=== PATIENT | female | born 1985 | race Caucasian/White ===

== ENCOUNTER → 2017-09-09 | Outpatient (CLI) | payer BC | LOC: FIMAGING 13:47 | PROVIDERS: ATTEND Obstetrics & Gynecology | DX: O09.811 Supervision of pregnancy resulting from assisted reproductive technology, first trimester (principal); O99.281 Endocrine, nutritional and metabolic diseases complicating pregnancy, first trimester; O34.01 Maternal care for unspecified congenital malformation of uterus, first trimester; Z20.828 Contact with and (suspected) exposure to other viral communicable diseases; E03.9 Hypothyroidism, unspecified; Z3A.12 12 weeks gestation of pregnancy ==

== ENCOUNTER → 2017-11-04 | Outpatient (CLI) | payer BC | LOC: FIMAGING 07:28 | PROVIDERS: ATTEND Obstetrics & Gynecology | DX: O09.812 Supervision of pregnancy resulting from assisted reproductive technology, second trimester (principal); Z3A.20 20 weeks gestation of pregnancy ==

== ENCOUNTER → 2017-11-26 | Outpatient (CLI) | payer BC | LOC: FIMAGING 08:24 | PROVIDERS: ATTEND Obstetrics & Gynecology | DX: O09.812 Supervision of pregnancy resulting from assisted reproductive technology, second trimester (principal); E03.9 Hypothyroidism, unspecified; Z3A.23 23 weeks gestation of pregnancy ==

== ENCOUNTER → 2018-01-09 | Outpatient (CLI) | payer BC | LOC: FIMAGING 13:00 | PROVIDERS: ATTEND Obstetrics & Gynecology | DX: O09.813 Supervision of pregnancy resulting from assisted reproductive technology, third trimester (principal); Z20.828 Contact with and (suspected) exposure to other viral communicable diseases; Z3A.29 29 weeks gestation of pregnancy ==

== ENCOUNTER → 2018-02-06 | Outpatient (CLI) | payer BC | LOC: FIMAGING 12:21 | PROVIDERS: ATTEND Obstetrics & Gynecology | DX: O09.813 Supervision of pregnancy resulting from assisted reproductive technology, third trimester (principal); Z03.79 Encounter for other suspected maternal and fetal conditions ruled out; Z3A.33 33 weeks gestation of pregnancy ==